=== PATIENT | male | born 1985 | race Two or more races ===

== ENCOUNTER 2024-02-24 12:39 | Emergency (ER) | payer OTHER ==
[~2024-02-24] VITALS: Ht 175.3 cm; Wt 95.3 kg
[2024-02-24] MEDS ORDERED: MEDROLPACK PO (17:00)
== END 2024-02-24 17:03 | disposition home or self-care (01) ==
LOC: ER 12:40
DX: G51.0 Bell's palsy (principal); I10 Essential (primary) hypertension